=== PATIENT | female | born 1985 | race Caucasian/White ===

== ENCOUNTER → 2019-02-24 10:24 | Outpatient (CLI) | payer MEDICARE, SELFPAY ==
--- NOTE | 2019-02-24 | DI.US.S_ITS ---
PROCEDURE: US RENAL COMPLETE INDICATIONS: PERSONAL HX UTI'S TECHNIQUE: Real-time scanning was performed of the kidneys and bladder, with image documentation. COMPARISON: None. FINDINGS: Kidneys: Kidneys are normal in size. Right kidney measures 11.2 cm long; left kidney measures 12.3 cm long. Right renal cortical thickness is 1.4 cm; left renal cortical thickness is 1.2 cm. Renal cortical echotexture is normal. No hydronephrosis or nephrolithiasis. No suspicious solid mass lesions. Bladder: Pre-void bladder volume is 664 mL. Post-void residual is 10 mL. Pre-void images demonstrate no intraluminal masses or stones. On pre-void images, post ureteral jets are noted with color Doppler interrogation. (Of note, ureteral jets may not be detectable in up to 25% of cases due to insufficient differences in specific gravity between ureteral and bladder urine). There are echogenic debris within the bladder lumen. Miscellaneous: No free pelvic fluid. IMPRESSION: 1. Normal kidneys. No renal stones or hydronephrosis. 2. Distended urinary bladder with echogenic decreased. 3. No significant post void residual. Dictated by: Nabila Elizabeth M.D. on 02/24/2019 at 14:25 Approved by: Nabila Elizabeth M.D. on 02/24/2019 at 14:28
== END ==
PROVIDERS: PCP Nurse Practitioner Gerontology; Visit Provider Urology
DX: Z87.440 Personal history of urinary (tract) infections (principal)
CPT/HCPCS: 76770

== ENCOUNTER 2021-09-26 14:14 | Emergency (ER) | payer MEDICARE, SELFPAY ==
[2021-09-26 14:17] VITALS: BP 110/74; PULSE 87; RESP 16; O2SAT 97
--- NOTE | 2021-09-26 15:41 | ED.FEMALEGU ---
HPI - Female Genitourinary General Chief complaint: Urogenital-Female Stated complaint: Thinks yeast infection from antibiotics Time Seen by Provider: 09/26/21 15:38 Source: patient Mode of arrival: Ambulatory Exam Initial Vital Signs Initial Vital Signs: Vital Signs Pulse Rate 87 09/26/21 14:17 Respiratory Rate 16 09/26/21 14:17 Blood Pressure 110/74 09/26/21 14:17 Pulse Oximetry 97 09/26/21 14:17 Course Vital Signs Vital signs: Vital Signs - 8 hr 09/26/21 14:17 Pulse Rate 87 Respiratory Rate 16 Blood Pressure 110/74 Pulse Oximetry 97 Discharge Plan Departure Referrals: Shilpa Bowling ARNP [Primary Care Provider] -
--- NOTE | 2021-09-26 16:08 | PC.NURSE ---
Called, not in waiting room.
== END 2021-09-26 16:10 | disposition left against medical advice (07) ==
PROVIDERS: PCP Nurse Practitioner Gerontology
DX: R20.8 Other disturbances of skin sensation (principal); L29.2 Pruritus vulvae
CPT/HCPCS: 99281